=== PATIENT | female | born 1980 | race Hispanic/Latino ===

== ENCOUNTER 2018-07-29 11:30 | Observation (INO) | payer BC ==
[~2018-07-29] VITALS: Ht 152.4 cm; Wt 77.1 kg
[2018-07-29 12:23] LABS: APPEARANCE,URINE Cloudy (CLEAR); BILIRUBIN,URINE Negative (NEGATIVE); COLOR,URINE Dark Yellow (YELLOW); GLUCOSE, URINE (UA) Negative (NEGATIVE); KETONES,URINE 40 mg/dL (NEGATIVE); LEUKOCYTE ESTERASE ,URINE Large (NEGATIVE); NITRATE,URINE Negative (NEGATIVE); OCCULT BLOOD,URINE Small (NEGATIVE); PROTEIN,URINE POS 1+ (NEGATIVE)
[2018-07-29 12:33] LABS: BASOPHILS % (AUTO) 0.3 % (0.0-5.0); EOSINOPHILS % (AUTO) 0.5 % (0.0-8.0); HEMATOCRIT 34.1 % (36-48); LYMPHOCYTES % (AUTO) 21.6 % (21.0-51.0); MEAN CORPUSCULAR HEMOGLOBIN 23.7 pg (27.0-33.0); MEAN CORPUSCULAR HGB CONC 32.7 g/dL (32.0-36.0); MEAN CORPUSCULAR VOLUME 72.5 fL (79-99); MONOCYTES % (AUTO) 4.3 % (3.0-13.0); NEUTROPHILS % (AUTO) 73.3 % (40.0-77.0); PLATELET COUNT (AUTO) 324 K/uL (130-400); RED BLOOD CELL COUNT(AUTO) 4.71 MIL/uL (4.00-5.50); RED CELL DISTRIBUTION WIDTH 17.3 % (11.0-15.5); WHITE BLOOD COUNT (AUTO) 8.4 K/uL (4.8-10.8)
[2018-07-29 12:51] LABS: CREATININE 0.6 mg/dL (0.5-1.5); POTASSIUM 3.9 mmol/L (3.5-5.1)
[2018-07-29 12:55] LABS: ALBUMIN 2.4 g/dL (3.5-5.0); BILIRUBIN,TOTAL 0.3 mg/dL (0.2-1.0); TOTAL PROTEIN, SERUM 7.1 g/dL (6.0-8.3); URIC ACID 4.6 mg/dL (2.6-7.2)
[2018-07-29 12:57] LABS: BACTERIA,URINE Moderate /HPF (None Seen); SQUAMOUS EPITHELIAL CELL,UR 30-50 /HPF (0-2)
[2018-07-29 13:13] LABS: INR 0.89 (0.85-1.15); PARTIAL THROMBOPLASTIN TIME 26.8 SEC (26.3-35.5); PROTHROMBIN TIME 9.4 SEC (9.6-11.6)
[2018-07-29] MEDS ORDERED: DEXAMETHASONE SOD PHOSPHATE 4 MG/ML 1ML VIAL IM SCH (14:15)
[2018-07-29] MEDS ORDERED: DEXAMETHASONE SOD PHOSPHATE 4 MG/ML 1ML VIAL ONE (14:21)
[2018-07-29 15:42] VITALS: BP 127/93
[2018-07-29] MEDS ORDERED: PREN-154 PO (16:08)
[2018-07-29 17:46] VITALS: BP 129/75
[2018-07-29 20:03] VITALS: BP 108/57
[2018-07-29] MEDS: DEXAMETHASONE SOD PHOSPHATE 4 MG/ML 1ML VIAL IM SCH (20:08)
[2018-07-29 22:02] VITALS: BP 111/69
[2018-07-30 00:13] VITALS: BP 126/83
[2018-07-30 02:22] VITALS: BP 139/83
[2018-07-30] MEDS: DEXAMETHASONE SOD PHOSPHATE 4 MG/ML 1ML VIAL IM SCH ×2 (02:30→08:46)
[2018-07-30 07:30] VITALS: BP 127/66
[2018-07-30] MEDS ORDERED: DEXAMETHASONE SOD PHOSPHATE 4 MG/ML 1ML VIAL IM SCH (08:36)
[2018-07-30 10:36] VITALS: BP 118/71
[2018-07-30 13:00] VITALS: BP_SYST 118; BP_SYST 126; BP_DIAS 58; BP_DIAS 61
[2018-07-30 14:00] LABS: CREATININE,SERUM FOR CRCL 0.6 mg/dL (0.6-1.3)
[2018-07-30 14:29] LABS: COLLECTION PERIOD,URINE 24 HR; TOTAL VOLUME 24HRS,URINE 1400 mL; TPROTEIN TIMED,URINE 40 mg/dL; TPROTEIN U,24HR CALC 560 mg/24HR (0-165)
[2018-07-30 15:00] VITALS: BP 118/61
== END 2018-07-30 16:50 | disposition home or self-care (01) ==
LOC: LDH 11:30 → WSH 15:40
PROVIDERS: ADMIT Specialist; ATTEND Specialist
DX: O14.93 Unspecified pre-eclampsia, third trimester (principal); O09.523 Supervision of elderly multigravida, third trimester; Z3A.34 34 weeks gestation of pregnancy
CPT/HCPCS: 36415; 59025; 80053; 81001; 82575; 82948; 84156; 84550; 85025; 85384; 85610; 85730; 96372 ×2; G0378 ×30; J1100 ×4

== ENCOUNTER 2018-08-12 09:48 | Observation (INO) | payer BC ==
[~2018-08-12] VITALS: Ht 152.4 cm; Wt 80.3 kg
[~2018-08-12 09:48] MED LIST: PREN-154 PO
[2018-08-12 10:20] VITALS: BP 130/69
== END 2018-08-12 11:21 | disposition home or self-care (01) ==
LOC: LDH 09:48
PROVIDERS: ADMIT Specialist; ATTEND Specialist
DX: O24.419 Gestational diabetes mellitus in pregnancy, unspecified control (principal); O09.523 Supervision of elderly multigravida, third trimester; Z3A.36 36 weeks gestation of pregnancy
CPT/HCPCS: 59025; 76819; G0378 ×3

== ENCOUNTER 2018-08-16 06:22 | Inpatient (IN) | payer BC ==
[~2018-08-16] VITALS: Ht 152.4 cm; Wt 78.0 kg
[2018-08-16] MEDS ORDERED: OXYTOCIN 10 USP UNITS/ML ONE ×2 (07:42→15:19)
[2018-08-16] MEDS ORDERED: LACTATED RINGERS 1000ML 1,000 ML IV ONE (07:42)
[2018-08-16] MEDS ORDERED: OXYTOCIN 10 USP UNITS/ML 20 UNIT in LACTATED RINGERS 1000ML 1,000 ML IV SCH (07:45)
[2018-08-16] MEDS ORDERED: LACTATED RINGERS 1000ML 1,000 ML IV PRN (07:45)
[2018-08-16 08:03] LABS: BASOPHILS % (AUTO) 0.4 % (0.0-5.0); EOSINOPHILS % (AUTO) 2.2 % (0.0-8.0); HEMATOCRIT 34.9 % (36-48); LYMPHOCYTES % (AUTO) 30.8 % (21.0-51.0); MEAN CORPUSCULAR HEMOGLOBIN 22.8 pg (27.0-33.0); MEAN CORPUSCULAR HGB CONC 31.8 g/dL (32.0-36.0); MEAN CORPUSCULAR VOLUME 71.8 fL (79-99); MONOCYTES % (AUTO) 6.8 % (3.0-13.0); NEUTROPHILS % (AUTO) 59.8 % (40.0-77.0); NUCLEATED RED BLOOD CELLS 0.3 % (0.0-0.19); PLATELET COUNT (AUTO) 253 K/uL (130-400); RED BLOOD CELL COUNT(AUTO) 4.86 MIL/uL (4.00-5.50); RED CELL DISTRIBUTION WIDTH 18.2 % (11.0-15.5); WHITE BLOOD COUNT (AUTO) 8.3 K/uL (4.8-10.8)
[2018-08-16 08:12] LABS: CREATININE 0.6 mg/dL (0.5-1.5); POTASSIUM 4.2 mmol/L (3.5-5.1)
[2018-08-16 08:15] LABS: INR 0.88 (0.85-1.15); PARTIAL THROMBOPLASTIN TIME 26.8 SEC (26.3-35.5); PROTHROMBIN TIME 9.3 SEC (9.6-11.6)
[2018-08-16 08:21] LABS: ALBUMIN 2.6 g/dL (3.5-5.0); BILIRUBIN,TOTAL 0.3 mg/dL (0.2-1.0); TOTAL PROTEIN, SERUM 7.1 g/dL (6.0-8.3); URIC ACID 3.8 mg/dL (2.6-7.2)
[2018-08-16] MEDS ORDERED: OXYTOCIN-LR 20 UNITS/1000 ML 1,000 ML IV SCH (09:30)
[2018-08-16] MEDS ORDERED: PROMETHAZINE HCL 25 MG/ML 1ML AMPULE IM ONE (13:41)
[2018-08-16] MEDS ORDERED: MEPERIDINE-PF 25 MG/ML SYG ONE (13:42)
[2018-08-16] MEDS ORDERED: PROMETHAZINE HCL 25 MG/ML 1ML AMPULE IM SCH (13:45)
[2018-08-16] MEDS ORDERED: MEPERIDINE-PF 25 MG/ML SYG IVP SCH (13:45)
[2018-08-16] MEDS ORDERED: DIPH,PERTUSS(ACELL),TET VAC/PF 0.5 ML VIAL IM PRN (14:45)
[2018-08-16] MEDS ORDERED: MEASLES/MUMPS/RUBELLA VACCINE, LIVE 0.5 ML/VIAL SQ PRN (14:45)
[2018-08-16] MEDS ORDERED: IBUPROFEN 800 MG TAB PO PRN (14:45)
[2018-08-16] MEDS ORDERED: WITCH HAZEL 1 PAD TP PRN (14:45)
[2018-08-16] MEDS ORDERED: ACETAMINOPHEN-CODEINE 300/30MG TAB PO PRN (14:45)
[2018-08-16] MEDS ORDERED: BENZOCAINE/LANOLIN/ALOE VERA 60 ML AEROSOL TP PRN (14:45)
[2018-08-16] MEDS ORDERED: LANOLIN 30GM OINTMENT TP PRN (14:45)
[2018-08-16 14:50] VITALS: BP 137/92
[2018-08-16 15:20] VITALS: BP 136/84
[2018-08-16 15:50] VITALS: BP 128/79
[2018-08-16 16:50] VITALS: BP 131/76
[2018-08-16 20:19] VITALS: BP 124/68
[2018-08-16] MEDS: DOCUSATE SODIUM 100 MG CAP PO SCH (21:07)
[2018-08-17 00:56] VITALS: BP 125/69
[2018-08-17 03:28] VITALS: BP 130/66
[2018-08-17 07:40] VITALS: BP 125/77
[2018-08-17] MEDS: DOCUSATE SODIUM 100 MG CAP PO SCH (08:06)
[2018-08-17 08:19] LABS: HEPATITIS Bs ANTIGEN SCREEN P Negative (Negative)
[2018-08-17 11:41] VITALS: BP 132/77
[2018-08-17 15:42] VITALS: BP 138/80
== END 2018-08-17 16:50 | disposition home or self-care (01) | DRG 807 ==
LOC: LDH 06:22 → WSH 14:50
PROVIDERS: ADMIT Specialist; ATTEND Specialist
PROC: 10E0XZZ Delivery of Products of Conception, External Approach (ICD-10-PCS; principal; 2018-08-16)
PROC: 3E033VJ Introduction of Other Hormone into Peripheral Vein, Percutaneous Approach (ICD-10-PCS; 2018-08-16)
DX: O14.04 Mild to moderate pre-eclampsia, complicating childbirth (principal); Z37.0 Single live birth; Z86.32 Personal history of gestational diabetes; Z3A.37 37 weeks gestation of pregnancy
CPT/HCPCS: 36415; 80053; 84550; 85025; 85027; 85384; 85610; 85730; 86592; 86850; 86900; 86901; 87340; A4351; A4606; J2175; J2550; J2590; J7120